=== PATIENT | female | born 1935 | race Native Hawaiian/Other Pacific Islander ===

== ENCOUNTER 2017-06-04 17:08 | Outpatient (CLI) | payer OTHER, MEDICARE ==
[2017-06-04] MEDS ORDERED: ASA LOW DOSE81 MG PO (17:54)
[2017-06-04] MEDS ORDERED: DOCU100C10 PO (17:55)
[2017-06-04] MEDS ORDERED: CRESTOR20 MG PO (17:56)
[2017-06-04] MEDS ORDERED: ELIQUIS2.5 MG PO (17:57)
[2017-06-04] MEDS ORDERED: ENSURE ENLIV PO (17:58)
[2017-06-04] MEDS ORDERED: HEMOCYTE PLS PO (18:00)
[2017-06-04] MEDS ORDERED: LANOXIN 0.120.125 M1 PO (18:01)
[2017-06-04] MEDS ORDERED: LORA0.5T17 PO (18:02)
[2017-06-04] MEDS ORDERED: METO25TA4 PO (18:06)
[2017-06-04] MEDS ORDERED: MIRALAX3350 N1 PO (18:07)
[2017-06-04] MEDS ORDERED: MULTI-VIT PO (18:08)
[2017-06-04] MEDS ORDERED: HYDR10TA47 PO (18:18)
[2017-06-04] MEDS ORDERED: MIRTAZAPINE7.5 MG PO (18:20)
[2017-06-04] MEDS ORDERED: [UNRECOGNIZED DRUG - CODE] INJ (18:20)
[2017-06-04] MEDS ORDERED: TEMA15CA19 PO (18:21)
[2017-06-04] MEDS ORDERED: TRAZ100T PO (18:22)
[2017-06-04] MEDS ORDERED: ASCORBIC ACD500 MG PO (18:24)
[2017-06-04] MEDS ORDERED: ZINC220 MG PO (18:25)
[2017-06-17] MEDS ORDERED: DIVA250T2 PO (14:26)
[2017-06-17] MEDS ORDERED: CALC500T57 PO (14:26)
[2017-06-17] MEDS ORDERED: ARIPIPRAZOLE10 MG PO (14:26)
[2017-06-17] MEDS ORDERED: ESCI10TA PO (14:26)
== END 2017-06-04 17:29 | disposition short-term general hospital (02) ==
LOC: AMB 17:08
DX: F03.91 Unspecified dementia, unspecified severity, with behavioral disturbance (principal)
CPT/HCPCS: A0425; A0429